=== PATIENT | female | born 1955 | race African-American/Black ===

== ENCOUNTER 2022-05-13 18:29 | Observation (INO) ==
[2022-05-13] MEDS ORDERED: methylPREDNISolone SOD SUC 125 MG/2 ML VIAL IV STA (19:26)
[2022-05-13] MEDS ORDERED: ALBUTEROL/IPRATROPIUM 3 ML NEB RESP TX STA (19:26)
[2022-05-13] MEDS ORDERED: ALBUTEROL NEB SOLN 5 MG/ML 20 ML/BOTTLE CONT NEB STA (19:27)
[2022-05-13 19:45] LABS: Basophils # 0.1 10*3/uL (0.0-0.2); Basophils % 0.7 % (0.0-0.8); Eosinophils # 0.2 10*3/uL (0.0-0.87); Eosinophils % 2.8 % (0.00-10.9); Hematocrit 42.1 VOL% (35.7-47.0); Hemoglobin 13.6 GM/DL (12.0-16.0); Immature Granulocytes % 0.3 %; Immature Granulocytes Absolute 0.02 #; Lymphocytes # 3.9 10*3/uL (1.4-4.0); Mean Corpuscular HGB Conc 32.3 GM/DL (32-36); Mean Corpuscular Volume 93.6 FL (87-102); Mean Platelet Volume 9.9 FL (9.6-12.0); Monocytes # 0.6 10*3/uL (0.11-0.8); Monocytes % 7.7 % (1.7-12.7); Neutrophils % 36.5 % (38.7-73.9); Platelet Count 282 T/CUMM (130-400); Red Cell Distribution Width 14.7 % (9.3-17.3); White Blood Count 7.5 T/CUMM (4-12)
[2022-05-13 20:01] LABS: Alanine Aminotransferase 19 U/L (13-56); Albumin 3.4 G/DL (3.4-5.0); Alkaline Phosphatase 123 U/L (45-117); Aspartate Amino Transferase 14 U/L (0-37); Bilirubin,Total < 0.39 MG/DL (0.20-1.00); Blood Urea Nitrogen 21 MG/DL (7-18); Calcium 8.9 MG/DL (8.5-10.1); Carbon Dioxide 31 MMOL/L (21-32); Chloride 108 MMOL/L (98-107); Glucose 116 MG/DL (74-106); Osmolality,Calculated 286.1 MOS/KG (273-304); Potassium 3.8 MMOL/L (3.5-5.1); Sodium 142 MMOL/L (136-145); Total Protein 7.6 G/DL (6.4-8.2)
[2022-05-13 20:11] LABS: Band Neutrophils 7 % (0-10); Eosinophils 3 % (0-10); Lymphocytes 47 % (20-55); Platelet Estimate Adequate; Total Cells Counted 100
[2022-05-13 20:58] LABS: Arterial Base Excess iSTAT 3 MMOL/L (-2.5-2.5); Arterial Bicarbonate iSTAT 28.4 MMOL/L (20-26); Arterial O2 Saturation iSTAT 94 % (95-100); Arterial PCO2 iSTAT 45 MM HG (35-48); Arterial PO2 iSTAT 69 MM HG (80-95); Arterial Total CO2 iSTAT 30 MMO/L (23-27); Arterial pH iSTAT 7.408 (7.35-7.45)
[2022-05-13] MEDS ORDERED: ACETAMINOPHEN 325 MG TABLET PO PRN (21:23)
[2022-05-13] MEDS ORDERED: ONDANSETRON 4 MG/2 ML VIAL IV PRN (21:23)
[2022-05-13] MEDS ORDERED: ALBUTEROL 2.5 MG/3 ML NEB RESP TX PRN (21:23)
[2022-05-14] MEDS: ALBUTEROL 2.5 MG/3 ML NEB RESP TX SCH ×4 (00:02→19:50)
[2022-05-14 04:49] LABS: Basophils % 0.1 % (0.0-0.8); Hematocrit 40.3 VOL% (35.7-47.0); Hemoglobin 13.1 GM/DL (12.0-16.0); Immature Granulocytes % 0.4 %; Immature Granulocytes Absolute 0.03 #; Lymphocytes # 0.9 10*3/uL (1.4-4.0); Mean Corpuscular HGB Conc 32.5 GM/DL (32-36); Mean Corpuscular Volume 93.3 FL (87-102); Mean Platelet Volume 9.8 FL (9.6-12.0); Monocytes # 0.1 10*3/uL (0.11-0.8); Neutrophils % 85.5 % (38.7-73.9); Platelet Count 288 T/CUMM (130-400); Red Blood Count 4.32 MC/CUMM (3.8-5.5); Red Cell Distribution Width 14.6 % (9.3-17.3); White Blood Count 7.1 T/CUMM (4-12)
[2022-05-14 04:59] LABS: Alanine Aminotransferase 16 U/L (13-56); Albumin 3.3 G/DL (3.4-5.0); Alkaline Phosphatase 111 U/L (45-117); Aspartate Amino Transferase 11 U/L (0-37); Bilirubin,Total < 0.39 MG/DL (0.20-1.00); Blood Urea Nitrogen 17 MG/DL (7-18); Calcium 9.2 MG/DL (8.5-10.1); Carbon Dioxide 24 MMOL/L (21-32); Chloride 110 MMOL/L (98-107); Glucose 177 MG/DL (74-106); Osmolality,Calculated 282.5 MOS/KG (273-304); Potassium 3.6 MMOL/L (3.5-5.1); Sodium 139 MMOL/L (136-145); Total Protein 7.9 G/DL (6.4-8.2)
[2022-05-14] MEDS ORDERED: methylPREDNISolone SOD SUC 125 MG/2 ML VIAL IV SCH (07:00)
[2022-05-14] MEDS ORDERED: PANTOPRAZOLE 40 MG TABLET PO SCH (09:00)
[2022-05-14] MEDS: ALPRAZolam 0.5 MG TABLET PO SCH ×2 (09:49→20:59)
[2022-05-14] MEDS: ENOXAPARIN 40 MG/0.4 ML SYRINGE SUBCUT SCH (09:49)
[2022-05-14] MEDS: BUDESONIDE/FORMOTEROL 160-4.5 INHALER 6 GM INH SCH ×2 (10:44→22:48)
[2022-05-14] MEDS: OXcarbazepine 300 MG TABLET PO SCH ×2 (10:45→21:00)
[2022-05-14] MEDS ORDERED: NICOTINE 21 MG/24 HR PATCH TRANSDERM PRN (12:57)
[2022-05-14] MEDS ORDERED: GLUCAGON 1 MG VIAL IM PRN (12:58)
[2022-05-14] MEDS ORDERED: DEXTROSE 10% 250 ML BAG IV PRN (13:16)
[2022-05-14] MEDS: methylPREDNISolone SOD SUC 40 MG/1 ML VIAL IV SCH (16:41)
[2022-05-14] MEDS: INSULIN LISPRO 100 UNIT/ML SUBCUT SCH ×2 (16:51→21:11)
[2022-05-14] MEDS ORDERED: OLANZapine 5 MG TABLET PO SCH (21:00)
[2022-05-14] MEDS ORDERED: MONTELUKAST 10 MG TABLET PO SCH (21:00)
[2022-05-14] MEDS ORDERED: MIRTAZAPINE 15 MG TABLET PO SCH (21:00)
[2022-05-15] MEDS: methylPREDNISolone SOD SUC 40 MG/1 ML VIAL IV SCH ×2 (00:05→08:42)
[2022-05-15 05:26] LABS: Basophils % 0.1 % (0.0-0.8); Hemoglobin 13.2 GM/DL (12.0-16.0); Immature Granulocytes % 0.5 %; Immature Granulocytes Absolute 0.11 #; Lymphocytes # 1.4 10*3/uL (1.4-4.0); Lymphocytes % 6.8 % (21.3-54.2); Mean Corpuscular HGB Conc 31.4 GM/DL (32-36); Mean Corpuscular Volume 95.5 FL (87-102); Mean Platelet Volume 10.3 FL (9.6-12.0); Monocytes # 0.7 10*3/uL (0.11-0.8); Monocytes % 3.4 % (1.7-12.7); Neutrophils % 89.2 % (38.7-73.9); Platelet Count 304 T/CUMM (130-400); White Blood Count 20.9 T/CUMM (4-12)
[2022-05-15 05:41] LABS: Potassium 3.8 MMOL/L (3.5-5.1)
[2022-05-15 05:55] LABS: Band Neutrophils 2 % (0-10); Hypochromia Slight; Lymphocytes 6 % (20-55); Total Cells Counted 100
[2022-05-15 05:56] LABS: Microcytosis Slight; Platelet Estimate Normal
[2022-05-15] MEDS: ALBUTEROL 2.5 MG/3 ML NEB RESP TX SCH ×3 (07:18→13:38)
[2022-05-15] MEDS: INSULIN LISPRO 100 UNIT/ML SUBCUT SCH ×3 (08:42→16:52)
[2022-05-15] MEDS: BUDESONIDE/FORMOTEROL 160-4.5 INHALER 6 GM INH SCH (08:42)
[2022-05-15] MEDS: ENOXAPARIN 40 MG/0.4 ML SYRINGE SUBCUT SCH (08:43)
[2022-05-15] MEDS: ALPRAZolam 0.5 MG TABLET PO SCH (08:43)
[2022-05-15] MEDS: OXcarbazepine 300 MG TABLET PO SCH (08:43)
[2022-05-15 08:53] LABS: Arterial Base Excess iSTAT -1 MMOL/L (-2.5-2.5); Arterial Bicarbonate iSTAT 25.1 MMOL/L (20-26); Arterial O2 Saturation iSTAT 97 % (95-100); Arterial PCO2 iSTAT 45 MM HG (35-48); Arterial PO2 iSTAT 95 MM HG (80-95); Arterial Total CO2 iSTAT 26 MMO/L (23-27); Arterial pH iSTAT 7.355 (7.35-7.45)
[2022-05-15] MEDS ORDERED: ALPRAZolam 0.5 MG TABLET PO PRN (09:47)
[2022-05-15] MEDS ORDERED: predniSONE 20 MG TABLET PO SCH (10:00)
[2022-05-15 16:51] VITALS: BP 141/86
== END 2022-05-15 19:02 | disposition left against medical advice (07) ==
LOC: N.EDINP 18:29 → N.ED 18:29 → SUATTDRO 21:23 → N.EDINP 05-14 13:28 → N.2W 05-14 13:36
PROVIDERS: ADMIT Internal Medicine; ATTEND Internal Medicine

== ENCOUNTER 2022-05-20 23:21 | Observation (INO) ==
[2022-05-20] MEDS ORDERED: NITROGLYCERIN 2% OINT 1 INCH/GM PACK TOP STA (23:30)
[2022-05-20] MEDS ORDERED: ALBUTEROL/IPRATROPIUM 3 ML NEB RESP TX STA (23:40)
[2022-05-20] MEDS ORDERED: MAGNESIUM SULF RIDER 2 GM/50 ML PREMIX IV STA (23:40)
[2022-05-20] MEDS ORDERED: methylPREDNISolone SOD SUC 125 MG/2 ML VIAL IV STA (23:40)
[2022-05-21 00:09] LABS: Arterial Base Excess iSTAT 4 MMOL/L (-2.5-2.5); Arterial Bicarbonate iSTAT 28.6 MMOL/L (20-26); Arterial O2 Saturation iSTAT 99 % (95-100); Arterial PCO2 iSTAT 42 MM HG (35-48); Arterial PO2 iSTAT 151 MM HG (80-95); Arterial Total CO2 iSTAT 30 MMO/L (23-27); Arterial pH iSTAT 7.444 (7.35-7.45)
[2022-05-21 00:27] LABS: Basophils # 0.1 10*3/uL (0.0-0.2); Basophils % 0.6 % (0.0-0.8); Eosinophils # 0.3 10*3/uL (0.0-0.87); Eosinophils % 2.6 % (0.00-10.9); Hematocrit 39.2 VOL% (35.7-47.0); Hemoglobin 12.7 GM/DL (12.0-16.0); Immature Granulocytes % 0.6 %; Immature Granulocytes Absolute 0.06 #; Lymphocytes # 4.5 10*3/uL (1.4-4.0); Lymphocytes % 42.5 % (21.3-54.2); Mean Corpuscular HGB Conc 32.4 GM/DL (32-36); Mean Corpuscular Volume 94.2 FL (87-102); Monocytes # 0.9 10*3/uL (0.11-0.8); Monocytes % 8.7 % (1.7-12.7); Platelet Count 223 T/CUMM (130-400); Red Blood Count 4.16 MC/CUMM (3.8-5.5); Red Cell Distribution Width 14.8 % (9.3-17.3); White Blood Count 10.5 T/CUMM (4-12)
[2022-05-21 00:39] LABS: INR 0.9; PT Patient Result 10.3 SECS (10.1-12.1)
[2022-05-21 00:42] LABS: Alanine Aminotransferase 42 U/L (13-56); Albumin 3.3 G/DL (3.4-5.0); Alkaline Phosphatase 115 U/L (45-117); Aspartate Amino Transferase 25 U/L (0-37); Bilirubin,Total < 0.39 MG/DL (0.20-1.00); Blood Urea Nitrogen 13 MG/DL (7-18); Calcium 8.9 MG/DL (8.5-10.1); Carbon Dioxide 28 MMOL/L (21-32); Chloride 108 MMOL/L (98-107); Glucose 125 MG/DL (74-106); Osmolality,Calculated 281.3 MOS/KG (273-304); Potassium 3.5 MMOL/L (3.5-5.1); Sodium 141 MMOL/L (136-145); Total Protein 7.1 G/DL (6.4-8.2)
[2022-05-21] MEDS ORDERED: ALBUTEROL/IPRATROPIUM 3 ML NEB RESP TX STA (00:51)
[2022-05-21 00:54] LABS: Eosinophils 1 % (0-10); Lymphocytes 34 % (20-55); Total Cells Counted 100
[2022-05-21 00:55] LABS: Platelet Estimate Adequate
[2022-05-21 01:23] LABS: Bacteria,Urine Occasional /HPF (Few); Mucus,Urine Occasional /LPF (Occasional); RBC,Urine 1 /HPF (0-4); Squamous Epithelial Cell,Urine Occasional /HPF (0-10)
[2022-05-21 01:24] LABS: Urine Color Yellow (Yellow)
[2022-05-21 01:25] LABS: Bilirubin,Urine Negative (Negative); Blood, Urine Trace mg/dL (Negative); Glucose,Urine (UA) Negative (Negative); Ketones,Urine Negative (Negative); Nitrite,Urine Negative (Negative); Protein,Urine Negative (Negative); Urine Appearance Slightly Cloudy (Clear); Urine Specific Gravity 1.025 (1.001-1.035); Urine pH 6.5 (4.5-8.0)
[2022-05-21 01:33] LABS: Barbiturates Screen,Urine Negative (Negative); Benzodiazepines Screen,Urine Negative (Negative); Cannabinoid Screen,Urine Negative (Negative); Opiate Screen,Urine Negative (Negative); Phencyclidine Screen,Urine Negative (Negative)
[2022-05-21] MEDS ORDERED: hydrALAZINE 20 MG/1 ML VIAL IV PRN (02:04)
[2022-05-21] MEDS ORDERED: ACETAMINOPHEN 325 MG TABLET PO PRN (02:04)
[2022-05-21] MEDS ORDERED: GLUCAGON 1 MG VIAL IM PRN (02:04)
[2022-05-21] MEDS ORDERED: DEXTROSE 50% 25 GM/50 ML VIAL IV PRN (02:04)
[2022-05-21] MEDS ORDERED: ONDANSETRON 4 MG/2 ML VIAL IV PRN (02:04)
[2022-05-21] MEDS ORDERED: MORPHINE 2 MG/1 ML SYRINGE IV PRN (02:04)
[2022-05-21] MEDS ORDERED: DEXTROSE 10% 250 ML BAG IV PRN (02:18)
[2022-05-21 02:54] LABS: Basophils % 0.3 % (0.0-0.8); Eosinophils # 0.1 10*3/uL (0.0-0.87); Eosinophils % 0.6 % (0.00-10.9); Hematocrit 38.9 VOL% (35.7-47.0); Hemoglobin 12.7 GM/DL (12.0-16.0); Immature Granulocytes % 0.7 %; Immature Granulocytes Absolute 0.06 #; Lymphocytes # 1.4 10*3/uL (1.4-4.0); Lymphocytes % 15.4 % (21.3-54.2); Mean Corpuscular HGB Conc 32.6 GM/DL (32-36); Mean Corpuscular Volume 93.3 FL (87-102); Mean Platelet Volume 10.2 FL (9.6-12.0); Monocytes # 0.3 10*3/uL (0.11-0.8); Monocytes % 3.3 % (1.7-12.7); Neutrophils % 79.7 % (38.7-73.9); Platelet Count 260 T/CUMM (130-400); Red Blood Count 4.17 MC/CUMM (3.8-5.5); Red Cell Distribution Width 14.7 % (9.3-17.3); White Blood Count 8.9 T/CUMM (4-12)
[2022-05-21] MEDS ORDERED: POTASSIUM CHLORIDE 20 MEQ TABLET PO PRN (03:06)
[2022-05-21 03:13] LABS: Calcium 8.7 MG/DL (8.5-10.1); Osmolality,Calculated 281.4 MOS/KG (273-304); Potassium 3.7 MMOL/L (3.5-5.1)
[2022-05-21] MEDS: methylPREDNISolone SOD SUC 125 MG/2 ML VIAL IV SCH ×2 (05:34→12:39)
[2022-05-21] MEDS: ALBUTEROL/IPRATROPIUM 3 ML NEB RESP TX SCH ×2 (07:15→13:15)
[2022-05-21] MEDS: INSULIN LISPRO 100 UNIT/ML SUBCUT SCH ×2 (08:38→12:25)
[2022-05-21] MEDS ORDERED: cefTRIAXone 1,000 MG in SODIUM CHLORIDE 0.9% 100 ML IV SCH (09:00)
[2022-05-21] MEDS ORDERED: ALPRAZolam 0.5 MG TABLET PO PRN (09:00)
[2022-05-21] MEDS ORDERED: OXcarbazepine 300 MG TABLET PO SCH (09:00)
[2022-05-21] MEDS ORDERED: PANTOPRAZOLE 40 MG TABLET PO SCH (09:00)
[2022-05-21 12:09] VITALS: BP 145/77
[2022-05-21] MEDS ORDERED: ENOXAPARIN 40 MG/0.4 ML SYRINGE SUBCUT SCH (21:00)
[2022-05-21] MEDS ORDERED: MIRTAZAPINE 15 MG TABLET PO PRN (21:00)
[2022-05-21] MEDS ORDERED: OLANZapine 5 MG TABLET PO SCH (21:00)
== END 2022-05-21 13:51 | disposition home or self-care (01) ==
LOC: EDBD → EDUNIT# → N.ED 23:21 → N.5E 23:21
PROVIDERS: ADMIT Internal Medicine; ATTEND Internal Medicine

== ENCOUNTER 2022-05-26 02:37 | Observation (INO) ==
[2022-05-26] MEDS ORDERED: ALBUTEROL/IPRATROPIUM 3 ML NEB RESP TX STA ×2 (02:46→04:47)
[2022-05-26] MEDS ORDERED: methylPREDNISolone SOD SUC 125 MG/2 ML VIAL IV STA (02:47)
[2022-05-26 03:40] LABS: Basophils # 0.1 10*3/uL (0.0-0.2); Basophils % 0.6 % (0.0-0.8); Eosinophils # 0.3 10*3/uL (0.0-0.87); Eosinophils % 2.9 % (0.00-10.9); Hematocrit 41.8 VOL% (35.7-47.0); Hemoglobin 13.6 GM/DL (12.0-16.0); Immature Granulocytes % 0.7 %; Immature Granulocytes Absolute 0.07 #; Lymphocytes # 4.1 10*3/uL (1.4-4.0); Mean Corpuscular HGB Conc 32.5 GM/DL (32-36); Mean Corpuscular Volume 92.3 FL (87-102); Mean Platelet Volume 9.7 FL (9.6-12.0); Monocytes # 0.7 10*3/uL (0.11-0.8); Neutrophils % 45.8 % (38.7-73.9); Platelet Count 301 T/CUMM (130-400); Red Blood Count 4.53 MC/CUMM (3.8-5.5); Red Cell Distribution Width 14.9 % (9.3-17.3); White Blood Count 9.6 T/CUMM (4-12)
[2022-05-26 03:52] LABS: Glucose,Urine (UA) Negative (Negative); Protein,Urine Negative (Negative); RBC,Urine 2 /HPF (0-4); Squamous Epithelial Cell,Urine Occasional /HPF (0-10); Urine Appearance Clear (Clear); Urine Color Yellow (Yellow); Urine Specific Gravity 1.015 (1.001-1.035)
[2022-05-26 03:53] LABS: Bilirubin,Urine Negative (Negative); Blood, Urine Trace mg/dL (Negative); Ketones,Urine Negative (Negative); Nitrite,Urine Negative (Negative); Urine Urobilinogen 0.2 eU/dL (<2.0)
[2022-05-26 04:07] LABS: Atypical Lymphocytes Few; Platelet Estimate Normal
[2022-05-26 04:17] LABS: Alanine Aminotransferase 23 U/L (13-56); Albumin 3.5 G/DL (3.4-5.0); Alkaline Phosphatase 120 U/L (45-117); Aspartate Amino Transferase 10 U/L (0-37); Bilirubin,Total < 0.39 MG/DL (0.20-1.00); Blood Urea Nitrogen 14 MG/DL (7-18); Calcium 8.9 MG/DL (8.5-10.1); Carbon Dioxide 28 MMOL/L (21-32); Chloride 108 MMOL/L (98-107); Glucose 95 MG/DL (74-106); Osmolality,Calculated 281.3 MOS/KG (273-304); Potassium 3.6 MMOL/L (3.5-5.1); Sodium 141 MMOL/L (136-145); Total Protein 7.4 G/DL (6.4-8.2)
[2022-05-26] MEDS ORDERED: ACETAMINOPHEN 325 MG TABLET PO PRN (04:58)
[2022-05-26] MEDS ORDERED: ONDANSETRON 4 MG/2 ML VIAL IV PRN (04:58)
[2022-05-26] MEDS ORDERED: ALBUTEROL 2.5 MG/3 ML NEB RESP TX PRN (04:58)
[2022-05-26 05:47] LABS: Barbiturates Screen,Urine Negative (Negative); Benzodiazepines Screen,Urine Negative (Negative); Cannabinoid Screen,Urine Negative (Negative); Opiate Screen,Urine Negative (Negative); Phencyclidine Screen,Urine Negative (Negative)
[2022-05-26] MEDS: ALBUTEROL/IPRATROPIUM 3 ML NEB RESP TX SCH ×3 (07:00→18:46)
[2022-05-26] MEDS ORDERED: ENOXAPARIN 40 MG/0.4 ML SYRINGE SUBCUT SCH (09:00)
[2022-05-26] MEDS ORDERED: PANTOPRAZOLE 40 MG TABLET PO SCH (09:00)
[2022-05-26] MEDS: BUDESONIDE/FORMOTEROL 160-4.5 INHALER 6 GM INH SCH ×2 (09:02→21:13)
[2022-05-26] MEDS ORDERED: DEXTROSE 10% 250 ML BAG IV PRN (10:14)
[2022-05-26] MEDS ORDERED: GLUCAGON 1 MG VIAL IM PRN (10:14)
[2022-05-26] MEDS ORDERED: ALPRAZolam 0.25 MG TABLET PO PRN (10:28)
[2022-05-26] MEDS ORDERED: methylPREDNISolone SOD SUC 125 MG/2 ML VIAL IV SCH (12:00)
[2022-05-26] MEDS ORDERED: methylPREDNISolone SOD SUC 40 MG/1 ML VIAL IV SCH (12:00)
[2022-05-26] MEDS: INSULIN LISPRO 100 UNIT/ML SUBCUT SCH ×3 (13:24→21:13)
[2022-05-26] MEDS: methylPREDNISolone SOD SUC 40 MG/1 ML VIAL IV SCH ×2 (14:52→21:14)
[2022-05-26] MEDS ORDERED: OLANZapine 5 MG TABLET PO SCH (21:00)
[2022-05-26] MEDS ORDERED: DOXYCYCLINE HYCLATE 100 MG CAPSULE PO SCH (21:00)
[2022-05-26] MEDS ORDERED: OXcarbazepine 300 MG TABLET PO SCH (21:00)
[2022-05-27] MEDS: ALBUTEROL/IPRATROPIUM 3 ML NEB RESP TX SCH ×2 (02:54→07:19)
[2022-05-27] MEDS: methylPREDNISolone SOD SUC 40 MG/1 ML VIAL IV SCH (05:01)
[2022-05-27 05:20] LABS: Basophils % 0.1 % (0.0-0.8); Hematocrit 40.1 VOL% (35.7-47.0); Hemoglobin 12.5 GM/DL (12.0-16.0); Immature Granulocytes % 0.5 %; Immature Granulocytes Absolute 0.09 #; Lymphocytes # 1.5 10*3/uL (1.4-4.0); Lymphocytes % 8.6 % (21.3-54.2); Mean Corpuscular HGB Conc 31.2 GM/DL (32-36); Mean Corpuscular Volume 94.4 FL (87-102); Mean Platelet Volume 10.2 FL (9.6-12.0); Monocytes # 0.6 10*3/uL (0.11-0.8); Monocytes % 3.3 % (1.7-12.7); Neutrophils % 87.5 % (38.7-73.9); Platelet Count 300 T/CUMM (130-400); Red Blood Count 4.25 MC/CUMM (3.8-5.5); Red Cell Distribution Width 15.3 % (9.3-17.3)
[2022-05-27 05:40] LABS: Calcium 8.6 MG/DL (8.5-10.1); Osmolality,Calculated 287.1 MOS/KG (273-304); Potassium 3.7 MMOL/L (3.5-5.1)
[2022-05-27 05:48] LABS: Alanine Aminotransferase 19 U/L (13-56); Albumin 2.9 G/DL (3.4-5.0); Alkaline Phosphatase 113 U/L (45-117); Aspartate Amino Transferase 10 U/L (0-37); Bilirubin,Total < 0.39 MG/DL (0.20-1.00); Blood Urea Nitrogen 19 MG/DL (7-18); Calcium 8.7 MG/DL (8.5-10.1); Carbon Dioxide 25 MMOL/L (21-32); Chloride 111 MMOL/L (98-107); Glucose 160 MG/DL (74-106); Osmolality,Calculated 285.3 MOS/KG (273-304); Sodium 141 MMOL/L (136-145); Total Protein 6.9 G/DL (6.4-8.2)
[2022-05-27 07:24] VITALS: BP 126/73
[2022-05-27 07:50] LABS: Basophils % 0.1 % (0.0-0.8); Hematocrit 39.6 VOL% (35.7-47.0); Hemoglobin 12.7 GM/DL (12.0-16.0); Immature Granulocytes % 0.5 %; Immature Granulocytes Absolute 0.09 #; Lymphocytes # 1.6 10*3/uL (1.4-4.0); Lymphocytes % 8.6 % (21.3-54.2); Mean Corpuscular HGB Conc 32.1 GM/DL (32-36); Mean Corpuscular Volume 94.1 FL (87-102); Mean Platelet Volume 9.9 FL (9.6-12.0); Monocytes # 0.7 10*3/uL (0.11-0.8); Monocytes % 3.5 % (1.7-12.7); Neutrophils % 87.3 % (38.7-73.9); Platelet Count 297 T/CUMM (130-400); Red Blood Count 4.21 MC/CUMM (3.8-5.5); Red Cell Distribution Width 15.3 % (9.3-17.3); White Blood Count 19.2 T/CUMM (4-12)
== END 2022-05-27 09:14 | disposition home or self-care (01) ==
LOC: N.EDINP 02:37 → N.ED 02:37 → SUATTDRO 05:19 → N.5E 05:24
PROVIDERS: ADMIT Internal Medicine; ATTEND Internal Medicine

== ENCOUNTER 2022-06-01 09:22 | Observation (INO) ==
[2022-06-01] MEDS ORDERED: ALBUTEROL 2.5 MG/3 ML NEB RESP TX STA (09:54)
[2022-06-01] MEDS ORDERED: methylPREDNISolone SOD SUC 125 MG/2 ML VIAL IV STA (09:54)
[2022-06-01 10:29] LABS: Alanine Aminotransferase 25 U/L (13-56); Alkaline Phosphatase 122 U/L (45-117); Aspartate Amino Transferase 14 U/L (0-37); Bilirubin,Total < 0.39 MG/DL (0.20-1.00); Blood Urea Nitrogen 10 MG/DL (7-18); Carbon Dioxide 26 MMOL/L (21-32); Chloride 107 MMOL/L (98-107); Glucose 100 MG/DL (74-106); Osmolality,Calculated 277.4 MOS/KG (273-304); Potassium 3.8 MMOL/L (3.5-5.1); Sodium 140 MMOL/L (136-145); Total Protein 6.9 G/DL (6.4-8.2)
[2022-06-01 10:31] LABS: Basophils % 0.6 % (0.0-0.8); Eosinophils # 0.3 10*3/uL (0.0-0.87); Eosinophils % 3.5 % (0.00-10.9); Hematocrit 42.7 VOL% (35.7-47.0); Hemoglobin 13.6 GM/DL (12.0-16.0); Immature Granulocytes % 1.1 %; Immature Granulocytes Absolute 0.08 #; Lymphocytes # 3.3 10*3/uL (1.4-4.0); Lymphocytes % 45.4 % (21.3-54.2); Mean Corpuscular HGB Conc 31.9 GM/DL (32-36); Mean Corpuscular Volume 94.5 FL (87-102); Monocytes # 0.5 10*3/uL (0.11-0.8); Monocytes % 7.5 % (1.7-12.7); Neutrophils % 41.9 % (38.7-73.9); Platelet Count 269 T/CUMM (130-400); Red Blood Count 4.52 MC/CUMM (3.8-5.5); Red Cell Distribution Width 15.5 % (9.3-17.3); White Blood Count 7.2 T/CUMM (4-12)
[2022-06-01] MEDS ORDERED: KETOROLAC 30 MG/1 ML VIAL IV ONE (12:03)
[2022-06-01] MEDS ORDERED: hydrALAZINE 20 MG/1 ML VIAL IV PRN (12:04)
[2022-06-01] MEDS ORDERED: guaiFENesin/DM ER 600-30 MG TABLET PO PRN (12:04)
[2022-06-01] MEDS ORDERED: DEXTROSE 10% 250 ML BAG IV PRN (12:04)
[2022-06-01] MEDS ORDERED: GLUCAGON 1 MG VIAL IM PRN (12:04)
[2022-06-01] MEDS ORDERED: ACETAMINOPHEN 325 MG TABLET PO PRN (12:04)
[2022-06-01 12:10] LABS: Barbiturates Screen,Urine Negative (Negative); Benzodiazepines Screen,Urine Negative (Negative); Cannabinoid Screen,Urine Negative (Negative); Opiate Screen,Urine Negative (Negative); Phencyclidine Screen,Urine Negative (Negative)
[2022-06-01] MEDS ORDERED: METHOCARBAMOL 750 MG TABLET PO PRN (12:57)
[2022-06-01] MEDS: ALBUTEROL/IPRATROPIUM 3 ML NEB RESP TX SCH ×2 (13:47→19:19)
[2022-06-01] MEDS: ENOXAPARIN 40 MG/0.4 ML SYRINGE SUBCUT SCH (14:29)
[2022-06-01] MEDS: NICOTINE 14 MG/24 HR PATCH TRANSDERM SCH (14:29)
[2022-06-01] MEDS: HydrOXYzine PAMOATE 25 MG CAPSULE PO PRN (15:51)
[2022-06-01] MEDS: methylPREDNISolone SOD SUC 125 MG/2 ML VIAL IV SCH (18:14)
[2022-06-01] MEDS: KETOROLAC 30 MG/1 ML VIAL IV PRN (18:16)
[2022-06-01] MEDS ORDERED: MONTELUKAST 10 MG TABLET PO SCH (21:00)
[2022-06-02] MEDS: ALBUTEROL/IPRATROPIUM 3 ML NEB RESP TX SCH ×3 (00:20→14:21)
[2022-06-02] MEDS: NICOTINE 14 MG/24 HR PATCH TRANSDERM SCH ×2 (01:21→09:06)
[2022-06-02] MEDS: BUDESONIDE/FORMOTEROL 160-4.5 INHALER 6 GM INH SCH ×2 (01:21→09:04)
[2022-06-02] MEDS: KETOROLAC 30 MG/1 ML VIAL IV PRN (01:22)
[2022-06-02] MEDS: methylPREDNISolone SOD SUC 125 MG/2 ML VIAL IV SCH ×2 (03:08→09:06)
[2022-06-02] MEDS: HydrOXYzine PAMOATE 25 MG CAPSULE PO PRN (06:06)
[2022-06-02 06:39] LABS: Basophils % 0.2 % (0.0-0.8); Hematocrit 41.5 VOL% (35.7-47.0); Hemoglobin 13.4 GM/DL (12.0-16.0); Immature Granulocytes % 0.9 %; Immature Granulocytes Absolute 0.17 #; Lymphocytes # 1.5 10*3/uL (1.4-4.0); Lymphocytes % 7.4 % (21.3-54.2); Mean Corpuscular HGB Conc 32.3 GM/DL (32-36); Mean Corpuscular Volume 94.3 FL (87-102); Mean Platelet Volume 10.2 FL (9.6-12.0); Monocytes # 0.7 10*3/uL (0.11-0.8); Monocytes % 3.5 % (1.7-12.7); Platelet Count 272 T/CUMM (130-400); Red Cell Distribution Width 15.4 % (9.3-17.3); White Blood Count 19.9 T/CUMM (4-12)
[2022-06-02 06:55] LABS: Calcium 8.7 MG/DL (8.5-10.1); Osmolality,Calculated 290.1 MOS/KG (273-304); Potassium 3.5 MMOL/L (3.5-5.1)
[2022-06-02] MEDS ORDERED: amLODIPine 5 MG TABLET PO SCH (09:00)
[2022-06-02] MEDS ORDERED: LIDOCAINE 5% PATCH TRANSDERM SCH (09:00)
[2022-06-02] MEDS ORDERED: LORazepam 0.5 MG TABLET PO PRN (10:04)
[2022-06-02] MEDS ORDERED: methylPREDNISolone SOD SUC 40 MG/1 ML VIAL IV SCH (14:00)
[2022-06-02] MEDS: ENOXAPARIN 40 MG/0.4 ML SYRINGE SUBCUT SCH (14:19)
[2022-06-02 16:31] VITALS: BP 127/63
== END 2022-06-02 18:53 | disposition left against medical advice (07) ==
LOC: N.ED 09:22 → N.EDINP 09:22 → SUATTDRO 12:04 → N.3E 13:19
PROVIDERS: ADMIT Internal Medicine; ATTEND Internal Medicine

== ENCOUNTER 2022-06-14 04:03 | Inpatient (IN) ==
[2022-06-14] MEDS ORDERED: methylPREDNISolone SOD SUC 125 MG/2 ML VIAL IV STA (04:20)
[2022-06-14] MEDS ORDERED: ALBUTEROL/IPRATROPIUM 3 ML NEB RESP TX STA ×2 (04:20→05:36)
[2022-06-14] MEDS ORDERED: ASPIRIN 325 MG TABLET PO STA (04:20)
[2022-06-14 05:07] LABS: Basophils # 0.1 10*3/uL (0.0-0.2); Basophils % 0.6 % (0.0-0.8); Eosinophils # 0.3 10*3/uL (0.0-0.87); Eosinophils % 3.1 % (0.00-10.9); Hematocrit 41.5 VOL% (35.7-47.0); Immature Granulocytes % 0.3 %; Immature Granulocytes Absolute 0.03 #; Lymphocytes # 3.7 10*3/uL (1.4-4.0); Lymphocytes % 40.5 % (21.3-54.2); Mean Corpuscular HGB Conc 31.3 GM/DL (32-36); Mean Corpuscular Volume 95.4 FL (87-102); Mean Platelet Volume 10.7 FL (9.6-12.0); Monocytes # 0.7 10*3/uL (0.11-0.8); Monocytes % 7.3 % (1.7-12.7); Neutrophils % 48.2 % (38.7-73.9); Platelet Count 234 T/CUMM (130-400); Red Blood Count 4.35 MC/CUMM (3.8-5.5); Red Cell Distribution Width 15.5 % (9.3-17.3); White Blood Count 9.1 T/CUMM (4-12)
[2022-06-14 05:17] LABS: INR 0.9; Partial Thromboplastin Time 27.8 SECS (23.7-32.9)
[2022-06-14 05:26] LABS: Alanine Aminotransferase 21 U/L (13-56); Alkaline Phosphatase 108 U/L (45-117); Aspartate Amino Transferase 14 U/L (0-37); Bilirubin,Total < 0.39 MG/DL (0.20-1.00); Blood Urea Nitrogen 13 MG/DL (7-18); Calcium 8.9 MG/DL (8.5-10.1); Carbon Dioxide 27 MMOL/L (21-32); Chloride 108 MMOL/L (98-107); Glucose 172 MG/DL (74-106); Potassium 3.4 MMOL/L (3.5-5.1); Sodium 143 MMOL/L (136-145); Total Protein 6.7 G/DL (6.4-8.2)
[2022-06-14 05:41] LABS: Anisocytosis Slight; Macrocytosis Slight; Platelet Estimate Normal
[2022-06-14] MEDS ORDERED: GLUCAGON 1 MG VIAL IM PRN (05:50)
[2022-06-14] MEDS ORDERED: DEXTROSE 10% 250 ML BAG IV PRN (05:50)
[2022-06-14] MEDS ORDERED: MORPHINE 2 MG/1 ML SYRINGE IV PRN (06:07)
[2022-06-14] MEDS ORDERED: ONDANSETRON 4 MG/2 ML VIAL IV PRN (06:07)
[2022-06-14] MEDS ORDERED: hydrALAZINE 20 MG/1 ML VIAL IV PRN (06:07)
[2022-06-14] MEDS ORDERED: DEXTROSE 50% 25 GM/50 ML VIAL IV PRN (06:17)
[2022-06-14] MEDS ORDERED: ENOXAPARIN 40 MG/0.4 ML SYRINGE ONE (06:30)
[2022-06-14] MEDS: SODIUM CHLORIDE 0.9% 1,000 ML IV SCH (06:33)
[2022-06-14] MEDS: ALBUTEROL/IPRATROPIUM 3 ML NEB RESP TX SCH ×3 (08:06→18:50)
[2022-06-14] MEDS: INSULIN LISPRO 100 UNIT/ML SUBCUT SCH ×3 (11:02→21:00)
[2022-06-14] MEDS: PANTOPRAZOLE 40 MG TABLET PO SCH (11:22)
[2022-06-14] MEDS: ENOXAPARIN 40 MG/0.4 ML SYRINGE SUBCUT SCH (11:22)
[2022-06-14] MEDS ORDERED: ALBUTEROL 2.5 MG/3 ML NEB RESP TX PRN (11:41)
[2022-06-14] MEDS ORDERED: methylPREDNISolone SOD SUC 125 MG/2 ML VIAL IV SCH (16:30)
[2022-06-14] MEDS: methylPREDNISolone SOD SUC 125 MG/2 ML VIAL IV SCH (17:24)
[2022-06-14] MEDS: OLANZapine 5 MG TABLET PO SCH (21:11)
[2022-06-14] MEDS: MIRTAZAPINE 15 MG TABLET PO SCH (21:11)
[2022-06-14 21:13] LABS: Barbiturates Screen,Urine Negative (Negative); Benzodiazepines Screen,Urine Negative (Negative); Cannabinoid Screen,Urine Negative (Negative); Opiate Screen,Urine Negative (Negative); Phencyclidine Screen,Urine Negative (Negative)
[2022-06-15] MEDS: methylPREDNISolone SOD SUC 125 MG/2 ML VIAL IV SCH ×4 (01:12→21:30)
[2022-06-15] MEDS: SODIUM CHLORIDE 0.9% 1,000 ML IV SCH (01:17)
[2022-06-15] MEDS: BUDESONIDE/FORMOTEROL 160-4.5 INHALER 6 GM INH SCH ×3 (01:22→21:31)
[2022-06-15 04:21] LABS: Alanine Aminotransferase 19 U/L (13-56); Albumin 2.9 G/DL (3.4-5.0); Alkaline Phosphatase 103 U/L (45-117); Aspartate Amino Transferase 10 U/L (0-37); Bilirubin,Total < 0.39 MG/DL (0.20-1.00); Blood Urea Nitrogen 17 MG/DL (7-18); Calcium 8.7 MG/DL (8.5-10.1); Carbon Dioxide 28 MMOL/L (21-32); Chloride 115 MMOL/L (98-107); Cholesterol 288 MG/DL (50-200); Glucose 143 MG/DL (74-106); HDL Cholesterol 65 MG/DL (40-60); Osmolality,Calculated 291.7 MOS/KG (273-304); Potassium 4.4 MMOL/L (3.5-5.1); Risk Ratio 4.43; Sodium 145 MMOL/L (136-145); Thyroid Stimulating Hormone 0.224 uIU/ml (0.358-3.74); Triglycerides 112 MG/DL (2-150); VLDL Cholesterol 22.4 MG/DL
[2022-06-15 04:31] LABS: Basophils % 0.1 % (0.0-0.8); Hematocrit 40.8 VOL% (35.7-47.0); Hemoglobin 12.9 GM/DL (12.0-16.0); Immature Granulocytes % 0.8 %; Immature Granulocytes Absolute 0.13 #; Lymphocytes # 1.3 10*3/uL (1.4-4.0); Lymphocytes % 8.5 % (21.3-54.2); Mean Corpuscular HGB Conc 31.6 GM/DL (32-36); Mean Corpuscular Volume 95.8 FL (87-102); Mean Platelet Volume 10.8 FL (9.6-12.0); Monocytes # 0.9 10*3/uL (0.11-0.8); Monocytes % 5.5 % (1.7-12.7); Neutrophils % 85.1 % (38.7-73.9); Platelet Count 245 T/CUMM (130-400); Red Blood Count 4.26 MC/CUMM (3.8-5.5); Red Cell Distribution Width 15.5 % (9.3-17.3); White Blood Count 15.8 T/CUMM (4-12)
[2022-06-15] MEDS: ALBUTEROL/IPRATROPIUM 3 ML NEB RESP TX SCH ×4 (07:45→18:58)
[2022-06-15] MEDS: INSULIN LISPRO 100 UNIT/ML SUBCUT SCH ×5 (08:04→21:41)
[2022-06-15] MEDS: ENOXAPARIN 40 MG/0.4 ML SYRINGE SUBCUT SCH (08:36)
[2022-06-15] MEDS: PANTOPRAZOLE 40 MG TABLET PO SCH (08:37)
[2022-06-15 09:38] LABS: Free T4 (Free Thyroxine) 0.79 NG/DL (0.76-1.46)
[2022-06-15] MEDS: AZITHROMYCIN INJ 250 MG in SODIUM CHLORIDE 0.9% 250 ML IV SCH (12:13)
[2022-06-15] MEDS ORDERED: ALBUTEROL/IPRATROPIUM 3 ML NEB RESP TX ONE (13:11)
[2022-06-15] MEDS ORDERED: SIMVASTATIN 40 MG TABLET PO SCH (21:00)
[2022-06-15] MEDS: ROSUVASTATIN 20 MG TABLET PO SCH (21:30)
[2022-06-15] MEDS: MONTELUKAST 10 MG TABLET PO SCH (21:30)
[2022-06-15] MEDS: OLANZapine 5 MG TABLET PO SCH (21:31)
[2022-06-15] MEDS: MIRTAZAPINE 15 MG TABLET PO SCH (22:56)
[2022-06-16] MEDS: ALBUTEROL/IPRATROPIUM 3 ML NEB RESP TX SCH ×4 (01:00→19:06)
[2022-06-16] MEDS: methylPREDNISolone SOD SUC 125 MG/2 ML VIAL IV SCH ×3 (02:10→14:06)
[2022-06-16] MEDS: PANTOPRAZOLE 40 MG TABLET PO SCH (08:52)
[2022-06-16] MEDS: INSULIN LISPRO 100 UNIT/ML SUBCUT SCH ×4 (08:52→21:28)
[2022-06-16] MEDS: ENOXAPARIN 40 MG/0.4 ML SYRINGE SUBCUT SCH (08:52)
[2022-06-16] MEDS: BUDESONIDE/FORMOTEROL 160-4.5 INHALER 6 GM INH SCH ×2 (08:53→21:29)
[2022-06-16] MEDS ORDERED: LOSARTAN 25 MG TABLET PO SCH (12:54)
[2022-06-16] MEDS ORDERED: FUROSEMIDE 40 MG/4 ML VIAL IV ONE (12:58)
[2022-06-16] MEDS ORDERED: hydrOXYzine HCL 25 MG/1 ML VIAL IM PRN (13:14)
[2022-06-16] MEDS: AZITHROMYCIN INJ 250 MG in SODIUM CHLORIDE 0.9% 250 ML IV SCH (14:06)
[2022-06-16] MEDS: ROSUVASTATIN 20 MG TABLET PO SCH (21:28)
[2022-06-16] MEDS: MIRTAZAPINE 15 MG TABLET PO SCH (21:28)
[2022-06-16] MEDS: MONTELUKAST 10 MG TABLET PO SCH (21:28)
[2022-06-16] MEDS: OLANZapine 5 MG TABLET PO SCH (21:28)
[2022-06-17] MEDS: ALBUTEROL/IPRATROPIUM 3 ML NEB RESP TX SCH ×2 (00:02→07:00)
[2022-06-17] MEDS: methylPREDNISolone SOD SUC 125 MG/2 ML VIAL IV SCH (00:53)
[2022-06-17 05:47] LABS: Basophils % 0.1 % (0.0-0.8); Hematocrit 38.7 VOL% (35.7-47.0); Hemoglobin 12.3 GM/DL (12.0-16.0); Immature Granulocytes % 1.3 %; Lymphocytes # 1.4 10*3/uL (1.4-4.0); Lymphocytes % 9.3 % (21.3-54.2); Mean Corpuscular HGB Conc 31.8 GM/DL (32-36); Mean Corpuscular Volume 94.4 FL (87-102); Mean Platelet Volume 10.5 FL (9.6-12.0); Monocytes # 0.8 10*3/uL (0.11-0.8); Neutrophils % 84.3 % (38.7-73.9); Platelet Count 254 T/CUMM (130-400); Red Cell Distribution Width 15.9 % (9.3-17.3); White Blood Count 15.1 T/CUMM (4-12)
[2022-06-17 06:04] LABS: Calcium 8.2 MG/DL (8.5-10.1); Osmolality,Calculated 296.6 MOS/KG (273-304); Potassium 3.2 MMOL/L (3.5-5.1)
[2022-06-17] MEDS ORDERED: FUROSEMIDE 40 MG/4 ML VIAL IV ONE (08:18)
[2022-06-17] MEDS ORDERED: methylPREDNISolone SOD SUC 125 MG/2 ML VIAL IV SCH (08:30)
[2022-06-17] MEDS: PANTOPRAZOLE 40 MG TABLET PO SCH (08:33)
[2022-06-17] MEDS: INSULIN LISPRO 100 UNIT/ML SUBCUT SCH ×2 (08:35→11:18)
[2022-06-17] MEDS: ENOXAPARIN 40 MG/0.4 ML SYRINGE SUBCUT SCH (08:36)
[2022-06-17] MEDS: BUDESONIDE/FORMOTEROL 160-4.5 INHALER 6 GM INH SCH (08:45)
[2022-06-17] MEDS ORDERED: LOSARTAN 50 MG TABLET PO SCH (09:00)
[2022-06-17] MEDS ORDERED: ASPIRIN EC 81 MG TABLET PO SCH (09:00)
[2022-06-17 12:08] VITALS: BP 159/83
[2022-06-18] MEDS ORDERED: POTASSIUM CHLORIDE 20 MEQ TABLET PO SCH (09:00)
== END 2022-06-17 13:02 | disposition home or self-care (01) | DRG 192 ==
LOC: N.ED 04:03 → N.EDINP 04:03 → SUATTDRO 07:01 → N.EDINP 06-15 22:01 → N.TELEN 06-15 22:43
PROVIDERS: ADMIT Internal Medicine; ATTEND Internal Medicine Geriatric Medicine

== ENCOUNTER 2022-06-24 23:40 | Observation (INO) ==
[2022-06-25] MEDS ORDERED: methylPREDNISolone SOD SUC 125 MG/2 ML VIAL IV STA (00:16)
[2022-06-25] MEDS ORDERED: ALBUTEROL 2.5 MG/3 ML NEB RESP TX STA ×2 (00:16→01:01)
[2022-06-25] MEDS ORDERED: ASPIRIN 325 MG TABLET PO STA (00:16)
[2022-06-25] MEDS ORDERED: ALBUTEROL/IPRATROPIUM 3 ML NEB RESP TX STA (00:16)
[2022-06-25] MEDS ORDERED: ALBUTEROL 2.5 MG/3 ML NEB RESP TX ONE ×2 (00:21→01:33)
[2022-06-25] MEDS ORDERED: ALBUTEROL/IPRATROPIUM 3 ML NEB RESP TX ONE (00:21)
[2022-06-25 00:34] LABS: Basophils # 0.1 10*3/uL (0.0-0.2); Basophils % 0.7 % (0.0-0.8); Eosinophils # 0.2 10*3/uL (0.0-0.87); Eosinophils % 1.9 % (0.00-10.9); Hematocrit 42.5 VOL% (35.7-47.0); Immature Granulocytes % 0.7 %; Immature Granulocytes Absolute 0.06 #; Lymphocytes # 3.1 10*3/uL (1.4-4.0); Lymphocytes % 35.2 % (21.3-54.2); Mean Corpuscular HGB Conc 32.9 GM/DL (32-36); Mean Corpuscular Volume 93.6 FL (87-102); Mean Platelet Volume 10.4 FL (9.6-12.0); Monocytes # 0.9 10*3/uL (0.11-0.8); Monocytes % 10.3 % (1.7-12.7); Neutrophils % 51.2 % (38.7-73.9); Platelet Count 293 T/CUMM (130-400); Red Blood Count 4.54 MC/CUMM (3.8-5.5); Red Cell Distribution Width 15.3 % (9.3-17.3); White Blood Count 8.8 T/CUMM (4-12)
[2022-06-25] MEDS ORDERED: methylPREDNISolone SOD SUC 125 MG/2 ML VIAL ONE (00:36)
[2022-06-25] MEDS ORDERED: ASPIRIN 325 MG TABLET ONE (00:36)
[2022-06-25 00:41] LABS: Alanine Aminotransferase 25 U/L (13-56); Albumin 3.5 G/DL (3.4-5.0); Alkaline Phosphatase 103 U/L (45-117); Aspartate Amino Transferase 17 U/L (0-37); Bilirubin,Total < 0.39 MG/DL (0.20-1.00); Blood Urea Nitrogen 13 MG/DL (7-18); Calcium 9.1 MG/DL (8.5-10.1); Carbon Dioxide 29 MMOL/L (21-32); Chloride 107 MMOL/L (98-107); Glucose 113 MG/DL (74-106); Osmolality,Calculated 281.3 MOS/KG (273-304); Potassium 3.8 MMOL/L (3.5-5.1); Sodium 141 MMOL/L (136-145); Total Protein 7.5 G/DL (6.4-8.2)
[2022-06-25 00:44] LABS: Arterial Base Excess iSTAT 4 MMOL/L (-2.5-2.5); Arterial Bicarbonate iSTAT 29.8 MMOL/L (20-26); Arterial O2 Saturation iSTAT 98 % (95-100); Arterial PCO2 iSTAT 46 MM HG (35-48); Arterial PO2 iSTAT 101 MM HG (80-95); Arterial Total CO2 iSTAT 31 MMO/L (23-27); Arterial pH iSTAT 7.424 (7.35-7.45)
[2022-06-25] MEDS ORDERED: LEVOFLOXACIN INJ 750 MG/150 ML PREMIX IV STA (01:01)
[2022-06-25 01:20] LABS: PT Patient Result 10.7 SECS (10.1-12.1)
[2022-06-25] MEDS ORDERED: LEVOFLOXACIN INJ 750 MG/150 ML PREMIX IV ONE (01:20)
[2022-06-25] MEDS ORDERED: hydrALAZINE 20 MG/1 ML VIAL IV PRN (01:25)
[2022-06-25] MEDS ORDERED: ACETAMINOPHEN 325 MG TABLET PO PRN (01:25)
[2022-06-25] MEDS ORDERED: ONDANSETRON 4 MG/2 ML VIAL IV PRN (01:25)
[2022-06-25] MEDS ORDERED: MORPHINE 2 MG/1 ML SYRINGE IV PRN (01:25)
[2022-06-25] MEDS ORDERED: ALBUTEROL 2.5 MG/3 ML NEB RESP TX PRN (01:25)
[2022-06-25] MEDS: LACTATED RINGERS 1,000 ML IV SCH ×2 (03:38→21:30)
[2022-06-25] MEDS ORDERED: methylPREDNISolone SOD SUC 40 MG/1 ML VIAL IV SCH (06:30)
[2022-06-25] MEDS: ALBUTEROL/IPRATROPIUM 3 ML NEB RESP TX SCH ×3 (07:25→19:22)
[2022-06-25] MEDS: ENOXAPARIN 40 MG/0.4 ML SYRINGE SUBCUT SCH (09:03)
[2022-06-25] MEDS: DOCUSATE SODIUM 100 MG CAPSULE PO SCH ×2 (09:03→21:26)
[2022-06-25] MEDS: PANTOPRAZOLE 40 MG TABLET PO SCH (09:37)
[2022-06-25] MEDS: methylPREDNISolone SOD SUC 40 MG/1 ML VIAL IV SCH ×3 (21:26→21:32)
[2022-06-25] MEDS: OLANZapine 5 MG TABLET PO SCH (21:26)
[2022-06-25] MEDS: MIRTAZAPINE 15 MG TABLET PO SCH (21:26)
[2022-06-25] MEDS: OXcarbazepine 300 MG TABLET PO SCH (21:27)
[2022-06-25] MEDS: ROSUVASTATIN 20 MG TABLET PO SCH (21:27)
[2022-06-25] MEDS: ALPRAZolam 0.5 MG TABLET PO SCH (21:27)
[2022-06-25] MEDS: MONTELUKAST 10 MG TABLET PO SCH (21:28)
[2022-06-25] MEDS: AMITRIPTYLINE 25 MG TABLET PO SCH (21:28)
[2022-06-25] MEDS: QUEtiapine 100 MG TABLET PO SCH (21:28)
[2022-06-25] MEDS: NICOTINE 21 MG/24 HR PATCH TRANSDERM PRN (21:29)
[2022-06-25] MEDS: BUDESONIDE/FORMOTEROL 160-4.5 INHALER 6 GM INH SCH ×2 (21:30)
[2022-06-26] MEDS: ALBUTEROL/IPRATROPIUM 3 ML NEB RESP TX SCH ×4 (00:30→19:45)
[2022-06-26] MEDS: methylPREDNISolone SOD SUC 40 MG/1 ML VIAL IV SCH ×3 (05:02→21:58)
[2022-06-26 05:57] LABS: Basophils % 0.1 % (0.0-0.8); Hematocrit 39.2 VOL% (35.7-47.0); Hemoglobin 12.3 GM/DL (12.0-16.0); Immature Granulocytes % 1.1 %; Immature Granulocytes Absolute 0.24 #; Lymphocytes # 1.5 10*3/uL (1.4-4.0); Lymphocytes % 6.9 % (21.3-54.2); Mean Corpuscular HGB Conc 31.4 GM/DL (32-36); Mean Corpuscular Volume 96.1 FL (87-102); Mean Platelet Volume 10.7 FL (9.6-12.0); Monocytes # 0.7 10*3/uL (0.11-0.8); Monocytes % 3.1 % (1.7-12.7); Neutrophils % 88.8 % (38.7-73.9); Platelet Count 287 T/CUMM (130-400); Red Blood Count 4.08 MC/CUMM (3.8-5.5); Red Cell Distribution Width 15.8 % (9.3-17.3); White Blood Count 21.6 T/CUMM (4-12)
[2022-06-26 06:11] LABS: Potassium 3.8 MMOL/L (3.5-5.1)
[2022-06-26 06:20] LABS: Band Neutrophils 2 % (0-10); Lymphocytes 8 % (20-55); Total Cells Counted 100
[2022-06-26 06:21] LABS: Microcytosis Slight
[2022-06-26] MEDS: ASPIRIN EC 81 MG TABLET PO SCH (08:13)
[2022-06-26] MEDS: CYANOCOBALAMIN 500 MCG TABLET PO SCH (08:13)
[2022-06-26] MEDS: OXcarbazepine 300 MG TABLET PO SCH ×2 (08:13→21:53)
[2022-06-26] MEDS: DOCUSATE SODIUM 100 MG CAPSULE PO SCH ×2 (08:14→21:56)
[2022-06-26] MEDS: PANTOPRAZOLE 40 MG TABLET PO SCH (08:14)
[2022-06-26] MEDS: ALPRAZolam 0.5 MG TABLET PO SCH ×2 (08:15→21:54)
[2022-06-26] MEDS: ENOXAPARIN 40 MG/0.4 ML SYRINGE SUBCUT SCH (08:17)
[2022-06-26] MEDS: BUDESONIDE/FORMOTEROL 160-4.5 INHALER 6 GM INH SCH ×2 (08:17→21:56)
[2022-06-26] MEDS: NICOTINE 21 MG/24 HR PATCH TRANSDERM PRN (09:54)
[2022-06-26] MEDS: DOXYCYCLINE HYCLATE INJ 100 MG in SODIUM CHLORIDE 0.9% 100 ML IV SCH ×2 (09:55→21:59)
[2022-06-26] MEDS ORDERED: methylPREDNISolone SOD SUC 40 MG/1 ML VIAL IV SCH (13:00)
[2022-06-26] MEDS: QUEtiapine 100 MG TABLET PO SCH (21:54)
[2022-06-26] MEDS: AMITRIPTYLINE 25 MG TABLET PO SCH (21:54)
[2022-06-26] MEDS: MIRTAZAPINE 15 MG TABLET PO SCH (21:54)
[2022-06-26] MEDS: OLANZapine 5 MG TABLET PO SCH (21:55)
[2022-06-26] MEDS: MONTELUKAST 10 MG TABLET PO SCH (21:56)
[2022-06-26] MEDS: ROSUVASTATIN 20 MG TABLET PO SCH (21:56)
[2022-06-27] MEDS: ALBUTEROL/IPRATROPIUM 3 ML NEB RESP TX SCH ×2 (01:00→07:20)
[2022-06-27] MEDS: methylPREDNISolone SOD SUC 40 MG/1 ML VIAL IV SCH (05:16)
[2022-06-27 07:39] VITALS: BP 132/83
[2022-06-27] MEDS ORDERED: LOSARTAN 25 MG TABLET PO SCH (09:00)
[2022-06-27] MEDS ORDERED: LEVOFLOXACIN 750 MG TABLET PO SCH (09:00)
[2022-06-27] MEDS ORDERED: LIDOCAINE 5% PATCH TRANSDERM SCH (09:00)
[2022-06-27] MEDS: ENOXAPARIN 40 MG/0.4 ML SYRINGE SUBCUT SCH (09:38)
[2022-06-27] MEDS: DOCUSATE SODIUM 100 MG CAPSULE PO SCH (09:38)
[2022-06-27] MEDS: ALPRAZolam 0.5 MG TABLET PO SCH (09:38)
[2022-06-27] MEDS: OXcarbazepine 300 MG TABLET PO SCH (09:38)
[2022-06-27] MEDS: CYANOCOBALAMIN 500 MCG TABLET PO SCH (09:38)
[2022-06-27] MEDS: ASPIRIN EC 81 MG TABLET PO SCH (09:38)
[2022-06-27] MEDS: PANTOPRAZOLE 40 MG TABLET PO SCH (09:38)
== END 2022-06-27 10:10 | disposition left against medical advice (07) ==
LOC: N.EDINP 23:40 → N.ED 23:40 → SUATTDRO 06-25 01:25 → N.EDINP 06-25 02:38 → N.2W 06-25 03:21 → SUATTDRO 06-26 08:50 → N.3E 06-26 14:53
PROVIDERS: ADMIT Internal Medicine; ATTEND Internal Medicine

== ENCOUNTER 2022-09-12 02:35 | Observation (INO) ==
[2022-09-12] MEDS ORDERED: NITROGLYCERIN 2% OINT 1 INCH/GM PACK TOP STA (02:51)
[2022-09-12] MEDS ORDERED: MORPHINE 2 MG/1 ML SYRINGE IV STA (02:51)
[2022-09-12] MEDS ORDERED: ONDANSETRON 4 MG/2 ML VIAL IV STA (02:51)
[2022-09-12] MEDS ORDERED: ALBUTEROL/IPRATROPIUM 3 ML NEB RESP TX STA (02:51)
[2022-09-12] MEDS ORDERED: ALBUTEROL NEB SOLN 5 MG/ML 20 ML/BOTTLE CONT NEB STA (02:51)
[2022-09-12] MEDS ORDERED: methylPREDNISolone SOD SUC 125 MG/2 ML VIAL IV STA (02:51)
[2022-09-12] MEDS ORDERED: FUROSEMIDE 40 MG/4 ML VIAL IV STA (02:51)
[2022-09-12] MEDS ORDERED: hydrALAZINE 20 MG/1 ML VIAL IV STA (02:51)
[2022-09-12 03:20] LABS: Basophils # 0.1 10*3/uL (0.0-0.2); Basophils % 0.8 % (0.0-0.8); Eosinophils # 0.1 10*3/uL (0.0-0.87); Eosinophils % 1.6 % (0.00-10.9); Hematocrit 44.8 VOL% (35.7-47.0); Hemoglobin 14.3 GM/DL (12.0-16.0); Immature Granulocytes % 0.3 %; Immature Granulocytes Absolute 0.02 #; Lymphocytes # 3.7 10*3/uL (1.4-4.0); Lymphocytes % 46.8 % (21.3-54.2); Mean Corpuscular HGB Conc 31.9 GM/DL (32-36); Mean Corpuscular Volume 97.6 FL (87-102); Monocytes # 0.6 10*3/uL (0.11-0.8); Neutrophils % 43.5 % (38.7-73.9); Platelet Count 269 T/CUMM (130-400); Red Blood Count 4.59 MC/CUMM (3.8-5.5); Red Cell Distribution Width 13.4 % (9.3-17.3)
[2022-09-12 03:24] LABS: PT Patient Result 10.9 SECS (10.1-12.1)
[2022-09-12 03:30] LABS: Bilirubin,Total 0.6 MG/DL (0.20-1.00); Calcium 9.6 MG/DL (8.5-10.1); Potassium 3.8 MMOL/L (3.5-5.1); Total Protein 7.6 G/DL (6.4-8.2)
[2022-09-12 03:54] LABS: Bacteria,Urine Occasional /HPF (Few); RBC,Urine 1 /HPF (0-4); Squamous Epithelial Cell,Urine Occasional /HPF (0-10)
[2022-09-12 04:00] LABS: Bilirubin,Urine Negative (Negative); Blood, Urine Negative (Negative); Glucose,Urine (UA) Negative (Negative); Ketones,Urine Negative (Negative); Nitrite,Urine Negative (Negative); Protein,Urine Negative (Negative); Urine Appearance Clear (Clear); Urine Color Yellow (Yellow); Urine Urobilinogen 0.2 eU/dL (<2.0); Urine pH 6.5 (4.5-8.0)
[2022-09-12] MEDS ORDERED: ONDANSETRON 4 MG/2 ML VIAL IV PRN (04:32)
[2022-09-12] MEDS ORDERED: hydrALAZINE 20 MG/1 ML VIAL IV PRN (04:32)
[2022-09-12] MEDS ORDERED: ACETAMINOPHEN 325 MG TABLET PO PRN (04:32)
[2022-09-12] MEDS ORDERED: NICOTINE 21 MG/24 HR PATCH TRANSDERM PRN (04:32)
[2022-09-12] MEDS ORDERED: MORPHINE 2 MG/1 ML SYRINGE IV PRN (04:32)
[2022-09-12 04:39] LABS: Barbiturates Screen,Urine Negative (Negative); Benzodiazepines Screen,Urine Negative (Negative); Cannabinoid Screen,Urine Negative (Negative); Opiate Screen,Urine Negative (Negative); Phencyclidine Screen,Urine Negative (Negative)
[2022-09-12] MEDS ORDERED: SODIUM CHLORIDE 0.9% 1,000 ML IV STA (04:51)
[2022-09-12] MEDS ORDERED: AZITHROMYCIN INJ 500 MG in SODIUM CHLORIDE 0.9% 250 ML IV SCH (05:00)
[2022-09-12] MEDS ORDERED: cefTRIAXone 1,000 MG in SODIUM CHLORIDE 0.9% 100 ML IV SCH (05:00)
[2022-09-12] MEDS ORDERED: LACTATED RINGERS 1,000 ML IV SCH (06:30)
[2022-09-12] MEDS ORDERED: ALBUTEROL/IPRATROPIUM 3 ML NEB RESP TX SCH (07:00)
[2022-09-12] MEDS ORDERED: CYANOCOBALAMIN 500 MCG TABLET PO SCH (09:00)
[2022-09-12] MEDS ORDERED: methylPREDNISolone SOD SUC 125 MG/2 ML VIAL IV SCH (09:00)
[2022-09-12] MEDS ORDERED: PANTOPRAZOLE 40 MG TABLET PO SCH (09:00)
[2022-09-12] MEDS ORDERED: ALPRAZolam 0.5 MG TABLET PO SCH (09:00)
[2022-09-12 12:01] VITALS: BP 109/75
[2022-09-12] MEDS ORDERED: AMITRIPTYLINE 25 MG TABLET PO SCH (21:00)
[2022-09-12] MEDS ORDERED: ENOXAPARIN 40 MG/0.4 ML SYRINGE SUBCUT SCH (21:00)
[2022-09-12] MEDS ORDERED: MIRTAZAPINE 15 MG TABLET PO SCH (21:00)
== END 2022-09-12 09:35 | disposition left against medical advice (07) ==
LOC: N.ED 02:35 → N.EDINP 02:35 → SUATTDRO 04:32 → N.EDINP 09:35
PROVIDERS: ADMIT Family Medicine; ATTEND Hospitalist

== ENCOUNTER 2022-10-03 00:36 | Inpatient (IN) ==
[2022-10-03 01:00] LABS: Basophils # 0.1 10*3/uL (0.0-0.2); Basophils % 0.9 % (0.0-0.8); Eosinophils # 0.2 10*3/uL (0.0-0.87); Eosinophils % 2.4 % (0.00-10.9); Hematocrit 43.6 VOL% (35.7-47.0); Hemoglobin 13.8 GM/DL (12.0-16.0); Immature Granulocytes % 0.3 %; Immature Granulocytes Absolute 0.02 #; Lymphocytes # 3.8 10*3/uL (1.4-4.0); Lymphocytes % 57.9 % (21.3-54.2); Mean Corpuscular HGB Conc 31.7 GM/DL (32-36); Mean Corpuscular Volume 95.2 FL (87-102); Mean Platelet Volume 10.4 FL (9.6-12.0); Monocytes # 0.5 10*3/uL (0.11-0.8); Monocytes % 8.1 % (1.7-12.7); Neutrophils % 30.4 % (38.7-73.9); Platelet Count 311 T/CUMM (130-400); Red Blood Count 4.58 MC/CUMM (3.8-5.5); Red Cell Distribution Width 13.2 % (9.3-17.3); White Blood Count 6.6 T/CUMM (4-12)
[2022-10-03] MEDS ORDERED: ALBUTEROL/IPRATROPIUM 3 ML NEB RESP TX STA (01:12)
[2022-10-03] MEDS ORDERED: methylPREDNISolone SOD SUC 125 MG/2 ML VIAL IV STA (01:12)
[2022-10-03] MEDS ORDERED: ALBUTEROL NEB SOLN 5 MG/ML 20 ML/BOTTLE CONT NEB STA (01:13)
[2022-10-03 01:14] LABS: INR 0.9; PT Patient Result 10.2 SECS (10.1-12.1); Partial Thromboplastin Time 24.8 SECS (23.7-32.9)
[2022-10-03 01:15] LABS: Alanine Aminotransferase 13 U/L (13-56); Albumin 3.6 G/DL (3.4-5.0); Alkaline Phosphatase 106 U/L (45-117); Aspartate Amino Transferase 18 U/L (0-37); Bilirubin,Total < 0.39 MG/DL (0.20-1.00); Blood Urea Nitrogen 11 MG/DL (7-18); Calcium 9.3 MG/DL (8.5-10.1); Carbon Dioxide 26 MMOL/L (21-32); Chloride 108 MMOL/L (98-107); Glucose 122 MG/DL (74-106); Osmolality,Calculated 285.8 MOS/KG (273-304); Potassium 3.8 MMOL/L (3.5-5.1); Sodium 144 MMOL/L (136-145); Total Protein 7.7 G/DL (6.4-8.2)
[2022-10-03 01:27] LABS: Lymphocytes 61 % (20-55); Metamyelocytes 1 %; Total Cells Counted 100
[2022-10-03 01:28] LABS: Platelet Estimate Normal
[2022-10-03 01:29] LABS: Poikilocytosis Slight
[2022-10-03] MEDS ORDERED: hydrALAZINE 20 MG/1 ML VIAL IV PRN (02:58)
[2022-10-03] MEDS ORDERED: ONDANSETRON 4 MG/2 ML VIAL IV PRN (02:58)
[2022-10-03] MEDS ORDERED: SIMETHICONE CHEW 125 MG TABLET PO PRN (02:58)
[2022-10-03] MEDS ORDERED: LACTATED RINGERS 1,000 ML IV ONE (03:15)
[2022-10-03] MEDS: methylPREDNISolone SOD SUC 40 MG/1 ML VIAL IV SCH ×3 (03:55→21:08)
[2022-10-03] MEDS: LEVOFLOXACIN INJ 750 MG/150 ML PREMIX IV SCH (04:00)
[2022-10-03 06:42] LABS: Barbiturates Screen,Urine Negative (Negative); Benzodiazepines Screen,Urine Negative (Negative); Cannabinoid Screen,Urine Negative (Negative); Opiate Screen,Urine Negative (Negative); Phencyclidine Screen,Urine Negative (Negative)
[2022-10-03] MEDS: ALBUTEROL/IPRATROPIUM 3 ML NEB RESP TX SCH ×3 (08:03→20:18)
[2022-10-03] MEDS: PANTOPRAZOLE 40 MG TABLET PO SCH (08:45)
[2022-10-03] MEDS: DOCUSATE SODIUM 100 MG CAPSULE PO SCH ×2 (08:45→21:08)
[2022-10-03] MEDS: ACETAMINOPHEN 325 MG TABLET PO PRN ×2 (08:49→15:11)
[2022-10-03] MEDS ORDERED: INFLUENZA VIRUS VACCINE 0.5 ML SYRINGE IM ONE (11:50)
[2022-10-03] MEDS: ALPRAZolam 0.25 MG TABLET PO PRN ×2 (13:45→21:09)
[2022-10-03] MEDS: BUDESONIDE/FORMOTEROL 160-4.5 INHALER 6 GM INH SCH ×2 (14:45→21:09)
[2022-10-03] MEDS: NICOTINE 14 MG/24 HR PATCH TRANSDERM SCH (15:10)
[2022-10-03] MEDS: MONTELUKAST 10 MG TABLET PO SCH (21:08)
[2022-10-03] MEDS: ENOXAPARIN 40 MG/0.4 ML SYRINGE SUBCUT SCH (21:08)
[2022-10-04] MEDS: ALBUTEROL/IPRATROPIUM 3 ML NEB RESP TX SCH ×4 (01:01→21:01)
[2022-10-04] MEDS: LEVOFLOXACIN INJ 750 MG/150 ML PREMIX IV SCH (04:02)
[2022-10-04] MEDS: methylPREDNISolone SOD SUC 40 MG/1 ML VIAL IV SCH ×3 (04:02→19:07)
[2022-10-04 06:33] LABS: Basophils % 0.1 % (0.0-0.8); Hematocrit 40.5 VOL% (35.7-47.0); Hemoglobin 12.9 GM/DL (12.0-16.0); Immature Granulocytes % 0.6 %; Immature Granulocytes Absolute 0.07 #; Lymphocytes # 1.3 10*3/uL (1.4-4.0); Mean Corpuscular HGB Conc 31.9 GM/DL (32-36); Mean Corpuscular Volume 95.5 FL (87-102); Mean Platelet Volume 10.9 FL (9.6-12.0); Monocytes # 0.7 10*3/uL (0.11-0.8); Monocytes % 5.5 % (1.7-12.7); Neutrophils % 82.8 % (38.7-73.9); Platelet Count 295 T/CUMM (130-400); Red Blood Count 4.24 MC/CUMM (3.8-5.5); Red Cell Distribution Width 13.2 % (9.3-17.3); White Blood Count 11.9 T/CUMM (4-12)
[2022-10-04 06:50] LABS: Calcium 8.8 MG/DL (8.5-10.1); Osmolality,Calculated 290.8 MOS/KG (273-304); Potassium 3.9 MMOL/L (3.5-5.1)
[2022-10-04] MEDS: DOCUSATE SODIUM 100 MG CAPSULE PO SCH ×2 (09:06→20:06)
[2022-10-04] MEDS: NICOTINE 14 MG/24 HR PATCH TRANSDERM SCH (09:06)
[2022-10-04] MEDS: PANTOPRAZOLE 40 MG TABLET PO SCH (09:07)
[2022-10-04] MEDS: ALPRAZolam 0.25 MG TABLET PO PRN ×2 (09:07→20:06)
[2022-10-04] MEDS: BUDESONIDE/FORMOTEROL 160-4.5 INHALER 6 GM INH SCH ×2 (09:07→20:06)
[2022-10-04] MEDS: INSULIN LISPRO 100 UNIT/ML SUBCUT SCH ×3 (11:57→21:38)
[2022-10-04] MEDS: ACETAMINOPHEN 325 MG TABLET PO PRN ×2 (13:47→21:41)
[2022-10-04] MEDS: methylPREDNISolone SOD SUC 125 MG/2 ML VIAL IV SCH (18:57)
[2022-10-04] MEDS: ENOXAPARIN 40 MG/0.4 ML SYRINGE SUBCUT SCH (20:06)
[2022-10-04] MEDS: MONTELUKAST 10 MG TABLET PO SCH (20:06)
[2022-10-05] MEDS: ALBUTEROL/IPRATROPIUM 3 ML NEB RESP TX SCH ×4 (01:28→19:35)
[2022-10-05] MEDS: methylPREDNISolone SOD SUC 125 MG/2 ML VIAL IV SCH (01:37)
[2022-10-05] MEDS: LEVOFLOXACIN INJ 750 MG/150 ML PREMIX IV SCH (03:10)
[2022-10-05 05:29] LABS: Basophils % 0.1 % (0.0-0.8); Hematocrit 40.3 VOL% (35.7-47.0); Hemoglobin 12.6 GM/DL (12.0-16.0); Immature Granulocytes % 0.8 %; Immature Granulocytes Absolute 0.09 #; Lymphocytes # 1.1 10*3/uL (1.4-4.0); Lymphocytes % 9.8 % (21.3-54.2); Mean Corpuscular HGB Conc 31.3 GM/DL (32-36); Mean Corpuscular Volume 96.6 FL (87-102); Mean Platelet Volume 11.1 FL (9.6-12.0); Monocytes # 0.2 10*3/uL (0.11-0.8); Monocytes % 1.8 % (1.7-12.7); Neutrophils % 87.5 % (38.7-73.9); Platelet Count 270 T/CUMM (130-400); Red Blood Count 4.17 MC/CUMM (3.8-5.5); Red Cell Distribution Width 13.4 % (9.3-17.3); White Blood Count 10.8 T/CUMM (4-12)
[2022-10-05 05:50] LABS: Calcium 8.3 MG/DL (8.5-10.1); Osmolality,Calculated 293.8 MOS/KG (273-304); Potassium 3.6 MMOL/L (3.5-5.1)
[2022-10-05] MEDS: INSULIN LISPRO 100 UNIT/ML SUBCUT SCH ×4 (09:31→20:59)
[2022-10-05] MEDS: DOCUSATE SODIUM 100 MG CAPSULE PO SCH ×2 (10:02→20:58)
[2022-10-05] MEDS: methylPREDNISolone SOD SUC 40 MG/1 ML VIAL IV SCH ×2 (10:02→17:46)
[2022-10-05] MEDS: PANTOPRAZOLE 40 MG TABLET PO SCH (10:02)
[2022-10-05] MEDS: BUDESONIDE/FORMOTEROL 160-4.5 INHALER 6 GM INH SCH ×2 (10:02→20:59)
[2022-10-05] MEDS: NICOTINE 14 MG/24 HR PATCH TRANSDERM SCH (10:02)
[2022-10-05] MEDS: ACETAMINOPHEN 325 MG TABLET PO PRN ×2 (13:41→20:59)
[2022-10-05] MEDS: ALPRAZolam 0.25 MG TABLET PO PRN (20:58)
[2022-10-05] MEDS: MONTELUKAST 10 MG TABLET PO SCH (20:59)
[2022-10-05] MEDS: ENOXAPARIN 40 MG/0.4 ML SYRINGE SUBCUT SCH (20:59)
[2022-10-05] MEDS ORDERED: OXcarbazepine 300 MG TABLET PO SCH (21:00)
[2022-10-06] MEDS: ALBUTEROL/IPRATROPIUM 3 ML NEB RESP TX SCH ×2 (00:10→08:44)
[2022-10-06] MEDS: methylPREDNISolone SOD SUC 40 MG/1 ML VIAL IV SCH (01:31)
[2022-10-06] MEDS: ACETAMINOPHEN 325 MG TABLET PO PRN (01:42)
[2022-10-06] MEDS: LEVOFLOXACIN INJ 750 MG/150 ML PREMIX IV SCH (04:20)
[2022-10-06 05:28] LABS: Basophils % 0.1 % (0.0-0.8); Hematocrit 38.8 VOL% (35.7-47.0); Hemoglobin 12.4 GM/DL (12.0-16.0); Immature Granulocytes % 0.8 %; Lymphocytes # 1.7 10*3/uL (1.4-4.0); Lymphocytes % 13.1 % (21.3-54.2); Mean Corpuscular Volume 94.9 FL (87-102); Mean Platelet Volume 10.5 FL (9.6-12.0); Monocytes # 0.6 10*3/uL (0.11-0.8); Monocytes % 4.8 % (1.7-12.7); Neutrophils % 81.2 % (38.7-73.9); Platelet Count 299 T/CUMM (130-400); Red Blood Count 4.09 MC/CUMM (3.8-5.5); Red Cell Distribution Width 13.4 % (9.3-17.3); White Blood Count 12.6 T/CUMM (4-12)
[2022-10-06 05:58] LABS: Potassium 3.3 MMOL/L (3.5-5.1)
[2022-10-06 07:13] VITALS: BP 131/84
[2022-10-06] MEDS ORDERED: LOSARTAN 50 MG TABLET PO SCH (09:00)
== END 2022-10-06 08:20 | disposition left against medical advice (07) | DRG 190 ==
LOC: N.EDINP 00:36 → N.ED 00:36 → SUATTDRO 02:58 → N.3E 10:16
PROVIDERS: ADMIT Internal Medicine; ATTEND Internal Medicine